=== PATIENT | male | born 1970 | race Caucasian/White ===

== ENCOUNTER 2017-04-08 11:06 | Inpatient (IN) | payer OTHER ==
[2017-04-08 11:20] VITALS: BMI 27.3
--- NOTE | 2017-04-08 13:02 | C.PDOC ---
History Of Present Illness 46 yo male come in for evaluation of RLQ pain gradually developed since yesterday associated with nausea, watery stool #2, decrease in appetite. Pt admits, taking antibiotic for past 7 days- Amoxicillin after was seen by dentist and diagnosed with early tooth abscess. Otherwise, pt denies fever, chills, neck pain, CP, SOB, dyspnea, diaphoresis, vomiting, melena, hematoschezia, back pain, UTI sx. Ambulate to ED appears in pain. Time Seen by Provider: 04/08/17 11:44 Chief Complaint (Nursing): Abdominal Pain History Per: Patient Onset/Duration Of Symptoms: Gradual Current Symptoms Are (Timing): Still Present Past Medical History Reviewed: Historical Data, Nursing Documentation, Vital Signs Vital Signs: Last Vital Signs Temp 98.2 F 04/08/17 11:20 Pulse 71 04/08/17 11:20 Resp 18 04/08/17 11:20 BP 138/77 04/08/17 11:20 Pulse Ox 99 04/08/17 16:28 - Medical History PMH: No Chronic Diseases Surgical History: No Surg Hx Family History: States: No Known Family Hx - Social History Hx Tobacco Use: No Hx Alcohol Use: No Hx Substance Use: No - Immunization History Hx Tetanus Toxoid Vaccination: No Hx Influenza Vaccination: No Hx Pneumococcal Vaccination: No Review Of Systems Except As Marked, All Systems Reviewed And Found Negative. Constitutional: Negative for: Fever, Chills ENT: Negative for: Ear Discharge, Nose Discharge, Throat Pain, Throat Swelling Cardiovascular: Negative for: Chest Pain Respiratory: Negative for: Cough, Shortness of Breath, Wheezing Gastrointestinal: Positive for: Nausea, Abdominal Pain, Diarrhea. Negative for : Vomiting, Melena, Hematochezia, Hematemesis Genitourinary: Negative for: Incontinence Musculoskeletal: Negative for: Neck Pain, Back Pain Skin: Negative for: Rash Neurological: Negative for: Altered Mental Status Physical Exam - Physical Exam Appears: Well, Non-toxic, No Acute Distress Skin: Normal Color, Warm, Dry, No Rash Eye(s): bilateral: PERRL Nose: No Flaring, No Discharge Oral Mucosa: Moist, No Drooling Throat: No Erythema, No Drooling Neck: Trachea Midline, Supple Cardiovascular: Rhythm Regular Respiratory: No Decreased Breath Sounds, No Accessory Muscle Use, No Rales, No Rhonchi Gastrointestinal/Abdominal: Soft, Tenderness (RLQ, moderate), No Distention, No Guarding, No Rebound Back: No CVA Tenderness Extremity: Normal ROM, No Deformity, No Swelling Neurological/Psych: Oriented x3, Normal Speech ED Course And Treatment - Laboratory Results Result Diagrams: 04/08/17 13:46 04/08/17 13:46 O2 Sat by Pulse Oximetry: 99 Pulse Ox Interpretation: Normal - CT Scan/US CT ABD/PLEVIS W/IV CONTRAST Other Rad Studies (CT/US): Read By Radiologist CT/US Interpretation: ADDENDUM: Upon closer review, there is mild inflammatory stranding at the level the right colon with adjacent diverticula and tiny foci at adjacent air. Constellation of findings appear consistent with acute diverticulitis and microperforation. Findings discussed with Jeanine Rogers on 04/08/17 at 5:32 p.m.. [ Addendum Report Added by Erica Bai MD at 04/08/2017 17:33:37 ] Progress Note: resident services coordinator called for consult at 16:01, pt was evaluated by surgery, hemoocult sent to lab. Blood work and imaging review, suspicion for Right side diverticulitis with small perforation. Case discussed between and surgical tech and admission to medicine recommend since no official radiology CT findings for Right side diverticulitis. At 17:37, radiologist called back and attendum placed with notes of. ADDENDUM: Upon closer review, there is mild inflammatory stranding at the level the right colon with adjacent diverticula and tiny foci at adjacent air. Constellation of findings appear consistent with acute diverticulitis and microperforation. Findings discussed with Jeanine Rogers on 04/08/17 at 5:32 p.m.. [ Addendum Report Added by Erica Bai MD at 04/08/2017 17:33:37 ]. was called back and accepted admission. Abx ordered. Results review and sicussed with pt. AGrees with plan. Disposition - Disposition Disposition: HOSPITALIZED Disposition Time: 16:01 Condition: STABLE Forms: [facility] (Lithuanian) - Clinical Impression Clinical Impression: Diverticulitis of colon with perforation
[2017-04-08] MEDS ORDERED: Sodium Chloride 0.9% 1,000 ML IV ONE (13:27)
[2017-04-08] MEDS ORDERED: Sodium Chloride 0.9% 1,000 ML ONE (13:46)
[2017-04-08 13:50] LABS: BASO % 0.2 % (0.0-2.0); HEMATOCRIT 42.6 % (35.0-51.0); MEAN CELL VOLUME 85.2 fL (80.0-94.0); MEAN CORPUSCULAR HEMOGLOBIN 28.9 pg (27.0-31.0); MEAN CORPUSCULAR HGB CONC 33.9 g/dL (33.0-37.0); MEAN PLATELET VOLUME 10.2 fL (7.2-11.7); MONO # 1.2 K/uL (0.0-0.8); MONO % 5.7 % (0.0-10.0); RED CELL DISTRIBUTION WIDTH 13.7 % (11.5-14.5); WHITE BLOOD COUNT 21.5 K/uL (4.8-10.8)
[2017-04-08 13:58] LABS: INR 1.2
[2017-04-08 14:03] LABS: ALKALINE PHOSPHATASE 99 U/L (38-126); ALT/SGPT 64 U/L (21-72); AST/SGOT 32 U/L (17-59); BILIRUBIN,TOTAL 0.8 mg/dL (0.2-1.3); BLOOD UREA NITROGEN 15 mg/dL (9-20); CALCIUM 8.7 mg/dl (8.6-10.4); CARBON DIOXIDE 30 mmol/L (22-30); CHLORIDE 102 mmol/L (98-107); GFR AFRICAN-AMERICAN > 60; GLUCOSE,RANDOM 115 mg/dL (75-110); POTASSIUM 4.3 mmol/L (3.6-5.2); SODIUM 141 mmol/L (132-148); TOTAL PROTEIN 8.3 g/dL (6.3-8.3)
[2017-04-08 14:04] LABS: ALB/GLOB RATIO 0.9 (1.0-2.1)
[2017-04-08 14:06] LABS: RBC URINE 2 /hpf (0-3); URINE BILIRUBIN NEGATIVE (NEGATIVE); URINE BLOOD 1+ (NEGATIVE); URINE COLOR Yellow (YELLOW); URINE GLUCOSE (UA) NORMAL (Normal); URINE KETONE NEGATIVE (NEGATIVE); URINE LEUKOCYTE ESTERASE NEG Leu/uL (Negative); URINE PROTEIN NEGATIVE (NEGATIVE); URINE UROBILINOGEN NORMAL mg/dL (0.2-1.0); WBC URINE 3 /hpf (0-5)
[2017-04-08] MEDS ORDERED: Iodixanol 320 MG/ML 100 ML BOTTLE IV ONE (14:47)
--- NOTE | 2017-04-08 15:49 | CT ---
PROCEDURE: CT Abdomen and Pelvis with contrast HISTORY: RLQ pain COMPARISON: None available. TECHNIQUE: Contrast dose: 100 cc Visipaque 320 Radiation dose: Total exam DLP = 528.36 MGy-cm. This CT exam was performed using one or more of the following dose reduction techniques: Automated exposure control, adjustment of the mA and/or kV according to patient size, and/or use of iterative reconstruction technique. FINDINGS: LOWER THORAX: Bibasilar atelectasis/ infiltrates. No visible pleural effusion or pneumothorax. LIVER: 6 mm right hepatic lobe hypodensity, too small to characterize. GALLBLADDER AND BILE DUCTS: Unremarkable. PANCREAS: Unremarkable. SPLEEN: 14 mm probable splenule left upper quadrant. Otherwise unremarkable. ADRENALS: Unremarkable. KIDNEYS AND URETERS: The kidneys enhance symmetrically. No hydronephrosis or obstructing calculus identified. VASCULATURE: No aortic aneurysm. BOWEL: Stomach is nondistended. Lack of oral contrast limits evaluation for bowel pathology. Bowel loops appear within normal limits of caliber without evidence of obstruction. APPENDIX: The appendix appears within normal limits of caliber. No secondary signs of acute appendicitis. PERITONEUM: No significant free fluid. No definite free air. LYMPH NODES: No bulky adenopathy. BLADDER: Unremarkable. REPRODUCTIVE: The prostate gland measures approximately 4.0 x 4.8 cm. BONES: No acute osseous abnormality is detected. OTHER FINDINGS: 8 mm fat containing umbilical hernia. IMPRESSION: Enlarged prostate gland. Recommend correlation with PSA. Bibasilar atelectasis/infiltrates. Too small to characterize right hepatic lobe hypodensity; statistically likely cyst or hemangioma.
[2017-04-08] MEDS ORDERED: Ciprofloxacin 400mg/200ml D5W 400 MG/200 ML BAG IVPB STA (17:42)
[2017-04-08] MEDS ORDERED: Piperacill/Tazo 4.5gm in Dex 4.5 GM/100 ML BAG IVPB STA (17:43)
[2017-04-08] MEDS ORDERED: metroNIDAZOLE IV 500 mg/100 ml 500 MG/100 ML BAG IV ONE (17:45)
[2017-04-08] MEDS ORDERED: Morphine 4 MG/ML VIAL IVP PRN (17:54)
--- NOTE | 2017-04-08 18:10 | CP.PCM.HP ---
<Bryant Sellers - Last Filed: 04/08/17 18:19> History of Present Illness - History of Present Illness History of Present Illness: Surgery H&P. Dr. Salazar 46yo M with no significant PMHx here for evaluation of RLQ abdominal pain. Patient states that he has had right sided abdominal pain for the past 5-6 months, had an out-patient abdominal ultrasound and was told that he has a muscle strain, which improved with some rest. Recently, he was prescribed Amoxicillin after he had "oral gum surgery for a dental abscess," he has 2 pills of the Amoxicillin left. He states that he has been having diarrhea for the past 3 days, denies any blood. Mild nausea which started this morning, no vomiting. Does report a fever of 100F last night, with some chills. Denies any constipation. no CP/SOB. Denies any urinary complaints. PMHx: Denies PSHx: Denies Family Hx: Denies Social Hx: Denies Tobacco. Occasional ETOH use. Denies illcit drugs. Lives at home with and daughter NKDA Present on Admission - Present on Admission Any Indicators Present on Admission: No Review of Systems - Review of Systems All systems: reviewed and no additional remarkable complaints except - Constitutional Constitutional: Chills, Fever - Cardiovascular Cardiovascular: absent: Chest Pain, Dyspnea - Respiratory Respiratory: absent: Cough, Dyspnea - Gastrointestinal Gastrointestinal: Abdominal Pain, Diarrhea, Nausea. absent: Hematochezia, Vomiting - Genitourinary Genitourinary: absent: Difficulty Urinating, Dysuria, Flank Pain, Hematuria Past Patient History - Past Social History Smoking Status: Never Smoked Alcohol: Occasional Drugs: Denies Home Situation {Lives}: With Family - PSYCHIATRIC Hx Substance Use: No - ANESTHESIA Hx Anesthesia: No Meds Allergies/Adverse Reactions: Allergies Allergy/AdvReac Type Severity Reaction Status Date / Time No Known Allergies Allergy Verified 04/08/17 11:19 Physical Exam - Constitutional Appears: Well, Non-toxic, No Acute Distress - Head Exam Head Exam: ATRAUMATIC, NORMAL INSPECTION, NORMOCEPHALIC - Eye Exam Eye Exam: EOMI - ENT Exam ENT Exam: Mucous Membranes Moist - Respiratory Exam Respiratory Exam: NORMAL BREATHING PATTERN. absent: Accessory Muscle Use, Respiratory Distress - Cardiovascular Exam Cardiovascular Exam: RRR - GI/Abdominal Exam Additional comments: Soft, Non distended. RLQ tenderness to palpation. No McBurney's point tenderness. No Psoas sign. No Morgan's sign. No Rebound tenderness. No guarding. No apparent masses or hernias. - Rectal Exam Rectal Exam: NORMAL INSPECTION. absent: Bloody Stool, Hemorrhoids, Fecal Impaction Additional comments: No prostatic tenderness to palpatin noted. No stool in rectal vault. No gross blood or melena noted. No Hemorrhoids noted. Good rectal tone. - Extremities Exam Extremities exam: Positive for: normal inspection. Negative for: calf tenderness - Neurological Exam Neurological exam: Alert, Oriented x3 - Psychiatric Exam Psychiatric exam: Normal Affect, Normal Mood - Skin Skin Exam: Dry, Intact, Normal Color, Warm Results - Vital Signs Recent Vital Signs: Last Vital Signs Temp 98.2 F 04/08/17 11:20 Pulse 71 04/08/17 11:20 Resp 18 04/08/17 11:20 BP 138/77 04/08/17 11:20 Pulse Ox 99 04/08/17 17:53 - Labs Result Diagrams: 04/08/17 13:46 04/08/17 13:46 Labs: Laboratory Results - last 24 hr 04/08/17 04/08/17 04/08/17 13:46 13:46 13:46 WBC 21.5 H RBC 5.00 Hgb 14.4 Hct 42.6 MCV 85.2 MCH 28.9 MCHC 33.9 RDW 13.7 Plt Count 205 MPV 10.2 Neut % (Auto) 80.1 H Lymph % (Auto) 14.0 L [place] % (Auto) 5.7 Eos % (Auto) 0.0 Baso % (Auto) 0.2 Neut # 17.3 H Lymph # 3.0 [place] # 1.2 H Eos # 0.0 Baso # 0.0 PT 13.3 H INR 1.2 APTT 27 Sodium Potassium Chloride Carbon Dioxide Anion Gap BUN Creatinine Est GFR ( Amer) Est GFR (Non-Af Amer) Random Glucose Calcium Total Bilirubin AST ALT Alkaline Phosphatase Total Protein Albumin Globulin Albumin/Globulin Ratio Lipase Urine Color Yellow Urine Clarity Clear Urine pH 5.0 Ur Specific [place] 1.012 Urine Protein Negative Urine Glucose (UA) Normal Urine Ketones Negative Urine Blood 1+ H Urine Nitrate Negative Urine Bilirubin Negative Urine Urobilinogen Normal Ur Leukocyte Esterase Neg Urine WBC (Auto) 3 Urine RBC (Auto) 2 04/08/17 13:46 WBC RBC Hgb Hct MCV MCH MCHC RDW Plt Count MPV Neut % (Auto) Lymph % (Auto) [place] % (Auto) Eos % (Auto) Baso % (Auto) Neut # Lymph # [place] # Eos # Baso # PT INR APTT Sodium 141 Potassium 4.3 Chloride 102 Carbon Dioxide 30 Anion Gap 13 BUN 15 Creatinine 0.9 Est GFR ( Amer) > 60 Est GFR (Non-Af Amer) > 60 Random Glucose 115 H Calcium 8.7 Total Bilirubin 0.8 AST 32 ALT 64 Alkaline Phosphatase 99 Total Protein 8.3 Albumin 4.0 Globulin 4.4 H Albumin/Globulin Ratio 0.9 L Lipase 55 Urine Color Urine Clarity Urine pH Ur Specific [place] Urine Protein Urine Glucose (UA) Urine Ketones Urine Blood Urine Nitrate Urine Bilirubin Urine Urobilinogen Ur Leukocyte Esterase Urine WBC (Auto) Urine RBC (Auto) Assessment & Plan - Assessment and Plan (Free Text) Assessment: 46yo M with right-sided diverticulitis w/ microperf - Leukocytosis, afebrile - VSS - IV Abx as per ID - IV Fluids - F/u GI recs - Pain management - Zofran prn - Encourage IS - NPO except sips and chips for now - serial abd exams Further recs as per Dr. Marei Sellers PGY1 surgery pager: [phone] <Adarsh Salazar - Last Filed: 04/11/17 17:43> Results - Vital Signs Recent Vital Signs: Last Vital Signs Temp 98.7 F 04/11/17 16:00 Pulse 55 L 04/11/17 16:00 Resp 20 04/11/17 16:00 BP 96/60 L 04/11/17 16:00 Pulse Ox 96 04/11/17 16:00 - Labs Result Diagrams: 04/11/17 08:08 04/11/17 08:08 Labs: Laboratory Results - last 24 hr 04/11/17 04/11/17 08:08 08:08 WBC 7.7 RBC 4.90 Hgb 14.2 Hct 42.0 MCV 85.7 MCH 28.9 MCHC 33.7 RDW 13.7 Plt Count 230 MPV 10.3 Sodium 139 Potassium 3.7 Chloride 102 Carbon Dioxide 29 Anion Gap 11 BUN 5 L Creatinine 1.0 Est GFR ( Amer) > 60 Est GFR (Non-Af Amer) > 60 Random Glucose 101 Calcium 8.1 L Total Bilirubin 0.9 AST 19 ALT 49 Alkaline Phosphatase 75 Total Protein 6.8 Albumin 3.7 Globulin 3.1 Albumin/Globulin Ratio 1.2 Attending/Attestation - Attestation I have personally seen and examined this patient.: Yes I have fully participated in the care of the patient.: Yes I have reviewed all pertinent clinical information: Yes Notes (Text): Pt was seen and examined at bedside Agree with above note and assessment Pt with Diverticulitis and severe leucocytosis RLQ tenderness Labs and radiology reviewed Ass: Colon diverticulitis with microperforation IV antibiotics NPO, IVF IV Morphine GI consult Plan d.w pt in detail Risk and benefit explained in detail.
[2017-04-08] MEDS: Dextrose 5%/0.45% NS 1,000 ML IV SCH (19:16)
[2017-04-08] MEDS: metroNIDAZOLE IV 500 mg/100 ml 500 MG/100 ML BAG IVPB SCH (20:42)
[2017-04-08] MEDS ORDERED: Pneumococcal 23-Valent Vaccine IM ONE (20:49)
[2017-04-08] MEDS ORDERED: Influenza Vaccine 60 mcg/0.5 mL SYR (4YR UP) IM ONE (20:50)
[2017-04-08] MEDS ORDERED: Piperacill/Tazo 4.5gm in Dex 4.5 GM/100 ML BAG IVPB SCH (22:00)
[2017-04-08] MEDS ORDERED: metroNIDAZOLE IV 500 mg/100 ml 500 MG/100 ML BAG IVPB SCH (22:00)
[2017-04-09] MEDS: Dextrose 5%/0.45% NS 1,000 ML IV SCH ×4 (02:00→18:09)
[2017-04-09] MEDS: Piperacill/Tazo 4.5gm in Dex 4.5 GM/100 ML BAG IVPB SCH ×3 (02:20→18:12)
[2017-04-09] MEDS ORDERED: metroNIDAZOLE IV 500 mg/100 ml 500 MG/100 ML BAG IVPB SCH (03:30)
[2017-04-09] MEDS: metroNIDAZOLE IV 500 mg/100 ml 500 MG/100 ML BAG IVPB SCH ×3 (04:15→20:57)
--- NOTE | 2017-04-09 07:55 | CP.PCM.CON ---
<Saw Browning - Last Filed: 04/09/17 08:40> History of Present Illness - History of Present Illness History of Present Illness: Saw Browning D.O. PGY-2, GI Consultation Note 46 year old male with no PMH who presents for complaints of severe RLQ pain and 3 episodes of diarrhea for the last 2 days. Patient states that he has been having issues with RLQ pain for about 5-6 months, was evaluate and had an US and told that he had a "split in the muscle." Patient continues to attribute his pains to this muscular issue as it would get worse with physical activity every time he played soccer. However, 8 days ago he went to the dentist for a tooth infection and was treated with Amoxicillin. He did not play soccer given this fact and then started to experience pain, -01/06, nonradiating, RLQ, constant, dull and different from before. Patient knew something was wrong as he had not done much physical activity to attribute the pain to. Patient then Saturday night 04/07 had one episode of [place] 6 diarrhea overnight and then [place] 7 in the morning of 04/08 and so decided to come in. Denies every having before. Denies sick contacts or recent travel. Denies any alarm symptoms including any recent weight loss, intentional or unintentional, fevers, chills, or night sweats. PMH: denies PSH: denies SH: denies tobacco use, states social alcohol, denies illicits, lives at home with and daughter, works a desk job/picking up boxes FH: 2 sisters have some sort of colitis, mom recently having GI issues Meds: tylenol PRN for pain Allergies: NKA Review of Systems - Review of Systems All systems: reviewed and no additional remarkable complaints except - Gastrointestinal Gastrointestinal: Abdominal Pain Past Patient History - Past Medical History & Family History Past Medical History?: No - Past Social History Smoking Status: Never Smoked - MUSCULOSKELETAL/RHEUMATOLOGICAL Hx Falls: No - PSYCHIATRIC Hx Substance Use: No - ANESTHESIA Hx Anesthesia: No Meds Allergies/Adverse Reactions: Allergies Allergy/AdvReac Type Severity Reaction Status Date / Time No Known Allergies Allergy Verified 04/08/17 11:19 - Medications Medications: Current Medications Dextrose/Sodium Chloride (Dextrose 5%/0.45% Ns 1000 Ml) 1,000 mls @ 125 mls/hr IV .Q8H ERI Last Admin: 04/09/17 02:00 Dose: 125 mls/hr Piperacillin Sod/Tazobactam Sod (Zosyn 4.5 Gm Iv Premix) 4.5 gm in 100 mls @ 200 mls/hr IVPB Q8H [facility] Last Admin: 04/09/17 02:20 Dose: 200 mls/hr Metronidazole (Flagyl) 500 mg in 100 mls @ 100 mls/hr IVPB Q8H [facility] Last Admin: 04/09/17 04:15 Dose: 100 mls/hr Morphine Sulfate (Morphine) 4 mg IVP Q4H PRN PRN Reason: Pain, moderate (4-7) Ondansetron HCl (Zofran Inj) 4 mg IVP Q4 PRN PRN Reason: Nausea/Vomiting Physical Exam - Constitutional Appears: Non-toxic, No Acute Distress - Head Exam Head Exam: ATRAUMATIC, NORMOCEPHALIC - Eye Exam Eye Exam: EOMI, PERRL. absent: Scleral icterus - ENT Exam ENT Exam: Mucous Membranes Moist, Normal Oropharynx - Neck Exam Neck exam: Positive for: Normal Inspection. Negative for: Tenderness - Respiratory Exam Respiratory Exam: Clear to Auscultation Bilateral. absent: Rhonchi, Wheezes - Cardiovascular Exam Cardiovascular Exam: RRR, +S1, +S2 - GI/Abdominal Exam GI & Abdominal Exam: Normal Bowel Sounds, Soft, Tenderness (mild RLQ). absent: Distended, Firm, Guarding - Extremities Exam Extremities exam: Negative for: calf tenderness, tenderness - Neurological Exam Neurological exam: Alert, Oriented x3 - Psychiatric Exam Psychiatric exam: Normal Affect, Normal Mood - Skin Skin Exam: Dry, Warm Results - Vital Signs Recent Vital Signs: Last Vital Signs Temp 98.4 F 04/09/17 00:00 Pulse 60 04/09/17 00:00 Resp 20 04/09/17 00:00 BP 106/62 04/09/17 00:00 Pulse Ox 95 04/09/17 00:00 - Labs Result Diagrams: 04/08/17 13:46 04/08/17 13:46 Labs: Laboratory Results - last 24 hr 04/08/17 04/08/17 04/08/17 13:46 13:46 13:46 WBC 21.5 H RBC 5.00 Hgb 14.4 Hct 42.6 MCV 85.2 MCH 28.9 MCHC 33.9 RDW 13.7 Plt Count 205 MPV 10.2 Neut % (Auto) 80.1 H Lymph % (Auto) 14.[address] [place] % (Auto) 5.7 Eos % (Auto) 0.0 Baso % (Auto) 0.2 Neut # 17.3 H Lymph # 3.0 [place] # 1.2 H Eos # 0.0 Baso # 0.0 PT 13.3 H INR 1.2 APTT 27 Sodium Potassium Chloride Carbon Dioxide Anion Gap BUN Creatinine Est GFR ( Amer) Est GFR (Non-Af Amer) Random Glucose Calcium Total Bilirubin AST ALT Alkaline Phosphatase Total Protein Albumin Globulin Albumin/Globulin Ratio Lipase Urine Color Yellow Urine Clarity Clear Urine pH 5.0 Ur Specific [place] 1.012 Urine Protein Negative Urine Glucose (UA) Normal Urine Ketones Negative Urine Blood 1+ H Urine Nitrate Negative Urine Bilirubin Negative Urine Urobilinogen Normal Ur Leukocyte Esterase Neg Urine WBC (Auto) 3 Urine RBC (Auto) 2 Stool Occult Blood 04/08/17 04/08/17 13:46 18:15 WBC RBC Hgb Hct MCV MCH MCHC RDW Plt Count MPV Neut % (Auto) Lymph % (Auto) [place] % (Auto) Eos % (Auto) Baso % (Auto) Neut # Lymph # [place] # Eos # Baso # PT INR APTT Sodium 141 Potassium 4.3 Chloride 102 Carbon Dioxide 30 Anion Gap 13 BUN 15 Creatinine 0.9 Est GFR ( Amer) > 60 Est GFR (Non-Af Amer) > 60 Random Glucose 115 H Calcium 8.7 Total Bilirubin 0.8 AST 32 ALT 64 Alkaline Phosphatase 99 Total Protein 8.3 Albumin 4.0 Globulin 4.4 H Albumin/Globulin Ratio 0.9 L Lipase 55 Urine Color Urine Clarity Urine pH Ur Specific [place] Urine Protein Urine Glucose (UA) Urine Ketones Urine Blood Urine Nitrate Urine Bilirubin Urine Urobilinogen Ur Leukocyte Esterase Urine WBC (Auto) Urine RBC (Auto) Stool Occult Blood Negative Assessment & Plan - Assessment and Plan (Free Text) Assessment: 46 year old male with no PMH who presents for complaints of severe RLQ pain and 3 episodes of diarrhea for 2 days Plan: Right sided diverticulosis with miroperforation Continue supportive care and IVF hydration Advance to liquid diet, can advance as tolerated Anti emetics PRN Pain control Continue abx Will need a colonoscopy in 6-8 once out acute episode for evaluation for causes of right sided diverticulosis Discussed with fellow and attending physician Thank you for the pleasure of participating in the care of this interesting patient - Date & Time Date: 04/09/17 Time: 06:45 <Minor Vance - Last Filed: 04/09/17 09:28> Meds - Medications Medications: Current Medications Dextrose/Sodium Chloride (Dextrose 5%/0.45% Ns 1000 Ml) 1,000 mls @ 125 mls/hr IV .Q8H [facility] Last Admin: 04/09/17 02:00 Dose: 125 mls/hr Piperacillin Sod/Tazobactam Sod (Zosyn 4.5 Gm Iv Premix) 4.5 gm in 100 mls @ 200 mls/hr IVPB Q8H [facility] Last Admin: 04/09/17 02:20 Dose: 200 mls/hr Metronidazole (Flagyl) 500 mg in 100 mls @ 100 mls/hr IVPB Q8H [facility] Last Admin: 04/09/17 04:15 Dose: 100 mls/hr Morphine Sulfate (Morphine) 4 mg IVP Q4H PRN PRN Reason: Pain, moderate (4-7) Ondansetron HCl (Zofran Inj) 4 mg IVP Q4 PRN PRN Reason: Nausea/Vomiting Results - Vital Signs Recent Vital Signs: Last Vital Signs Temp 98.3 F 04/09/17 08:08 Pulse 61 04/09/17 08:08 Resp 20 04/09/17 08:08 BP 111/69 04/09/17 08:08 Pulse Ox 96 04/09/17 08:08 - Labs Result Diagrams: 04/08/17 13:46 04/08/17 13:46 Labs: Laboratory Results - last 24 hr 04/08/17 04/08/17 04/08/17 13:46 13:46 13:46 WBC 21.5 H RBC 5.00 Hgb 14.4 Hct 42.6 MCV 85.2 MCH 28.9 MCHC 33.9 RDW 13.7 Plt Count 205 MPV 10.2 Neut % (Auto) 80.1 H Lymph % (Auto) 14.[address] [place] % (Auto) 5.7 Eos % (Auto) 0.0 Baso % (Auto) 0.2 Neut # 17.3 H Lymph # 3.0 [place] # 1.2 H Eos # 0.0 Baso # 0.0 PT 13.3 H INR 1.2 APTT 27 Sodium Potassium Chloride Carbon Dioxide Anion Gap BUN Creatinine Est GFR ( Amer) Est GFR (Non-Af Amer) Random Glucose Calcium Total Bilirubin AST ALT Alkaline Phosphatase Total Protein Albumin Globulin Albumin/Globulin Ratio Lipase Urine Color Yellow Urine Clarity Clear Urine pH 5.0 Ur Specific [place] 1.012 Urine Protein Negative Urine Glucose (UA) Normal Urine Ketones Negative Urine Blood 1+ H Urine Nitrate Negative Urine Bilirubin Negative Urine Urobilinogen Normal Ur Leukocyte Esterase Neg Urine WBC (Auto) 3 Urine RBC (Auto) 2 Stool Occult Blood 04/08/17 04/08/17 13:46 18:15 WBC RBC Hgb Hct MCV MCH MCHC RDW Plt Count MPV Neut % (Auto) Lymph % (Auto) [place] % (Auto) Eos % (Auto) Baso % (Auto) Neut # Lymph # [place] # Eos # Baso # PT INR APTT Sodium 141 Potassium 4.3 Chloride 102 Carbon Dioxide 30 Anion Gap 13 BUN 15 Creatinine 0.9 Est GFR ( Amer) > 60 Est GFR (Non-Af Amer) > 60 Random Glucose 115 H Calcium 8.7 Total Bilirubin 0.8 AST 32 ALT 64 Alkaline Phosphatase 99 Total Protein 8.3 Albumin 4.0 Globulin 4.4 H Albumin/Globulin Ratio 0.9 L Lipase 55 Urine Color Urine Clarity Urine pH Ur Specific [place] Urine Protein Urine Glucose (UA) Urine Ketones Urine Blood Urine Nitrate Urine Bilirubin Urine Urobilinogen Ur Leukocyte Esterase Urine WBC (Auto) Urine RBC (Auto) Stool Occult Blood Negative Attending/Attestation - Attestation I have personally seen and examined this patient.: Yes I have fully participated in the care of the patient.: Yes I have reviewed all pertinent clinical information: Yes Notes (Text): 04/09/17 09:21 I have seen and examined patient with GI fellow and medical records technician. Agree with above documentation with the following additions. In brief, this is a 46 year old male without significant past medical history who presents to hospital with complaint of sharp right sided abdominal pain which started 3 days ago. Prior to this he was in usual state of health. He describes a sharp, 8/10 intensity RLQ pain that was non-radiating and worse with movement. He admits to intermittent similar issues over the past 6 months which he believed were muscular in origin. When pain started, he also experienced three episodes of watery diarrhea. He otherwise denies nausea, vomiting, fever/chills, weight loss, or rectal bleeding. No prior endoscopic evaluation. Additional physical examination: Abdomen: no palpable hepato/splenomegaly Abdominal pain CT imaging reviewed by me showing right sided cecal inflammation with microperforation consistent with acute diverticulitis - Liquid diet as tolerated - Continue with antibiotic therapy - Follow up blood cultures - Follow up surgical recommendations - Patient would require outpatient elective colonoscopy 6-8 weeks following resolution of acute diverticulitis episode. Will continue to monitor patient clinical course.
--- NOTE | 2017-04-09 10:11 | CP.PCM.PN ---
<Bryant Sellers - Last Filed: 04/09/17 10:06> Subjective - Date & Time of Evaluation Date of Evaluation: 04/09/17 Time of Evaluation: 07:00 - Subjective Subjective: Surgery Progress note. Dr. Salazar Pt seen and examined at bedside. No acute events overnight. Denies F/C. Abd pain mildly improved. Denies N/V/D. Does report that he is hungry. Objective - Vital Signs/Intake and Output Vital Signs (last 24 hours): Temp Pulse Resp BP Pulse Ox 98.3 F 61 20 111/69 96 04/09/17 08:08 04/09/17 08:08 04/09/17 08:08 04/09/17 08:08 04/09/17 08:08 Intake and Output: 04/09/17 04/09/17 06:59 18:59 Intake Total 1415 Balance 1415 - Medications Medications: Current Medications Dextrose/Sodium Chloride (Dextrose 5%/0.45% Ns 1000 Ml) 1,000 mls @ 125 mls/hr IV .Q8H [facility] Last Admin: 04/09/17 02:00 Dose: 125 mls/hr Piperacillin Sod/Tazobactam Sod (Zosyn 4.5 Gm Iv Premix) 4.5 gm in 100 mls @ 200 mls/hr IVPB Q8H [facility] Last Admin: 04/09/17 02:20 Dose: 200 mls/hr Metronidazole (Flagyl) 500 mg in 100 mls @ 100 mls/hr IVPB Q8H [facility] Last Admin: 04/09/17 04:15 Dose: 100 mls/hr Morphine Sulfate (Morphine) 4 mg IVP Q4H PRN PRN Reason: Pain, moderate (4-7) Ondansetron HCl (Zofran Inj) 4 mg IVP Q4 PRN PRN Reason: Nausea/Vomiting - Labs Labs: 04/08/17 13:46 04/08/17 13:46 PT 13.3 SECONDS (9.7-12.2) H 04/08/17 13:46 INR 1.2 04/08/17 13:46 APTT 27 SECONDS (21-34) 04/08/17 13:46 - Constitutional Appears: Well, Non-toxic, No Acute Distress - Head Exam Head Exam: ATRAUMATIC, NORMAL INSPECTION, NORMOCEPHALIC - Eye Exam Eye Exam: EOMI - ENT Exam ENT Exam: Mucous Membranes Moist - Respiratory Exam Respiratory Exam: NORMAL BREATHING PATTERN. absent: Accessory Muscle Use, Respiratory Distress - GI/Abdominal Exam GI & Abdominal Exam: Soft. absent: Distended, Firm, Guarding, Rigid Additional comments: Tenderness to palpation RLQ. No rebound, no guarding - Extremities Exam Extremities Exam: Normal Inspection. absent: Calf Tenderness - Neurological Exam Neurological Exam: Alert, Awake, Normal Gait, Oriented x3 - Psychiatric Exam Psychiatric exam: Normal Affect, Normal Mood - Skin Skin Exam: Dry, Intact, Normal Color, Warm Assessment and Plan - Assessment and Plan (Free Text) Assessment: 46yo M with right-sided diverticulitis w/ microperf - VSS - will f/u labs today, prior to advancing diet as tolerated - IV Abx as per ID - IV Fluids - GI recs: will need elective colonoscopy in 6-8 weeks. - Pain management - Zofran prn Further recs as per Dr. Marie Sellers PGY1 surgery pager: [phone] <Adarsh Salazar B - Last Filed: 04/11/17 17:48> Objective - Vital Signs/Intake and Output Vital Signs (last 24 hours): Temp Pulse Resp BP Pulse Ox 98.7 F 55 L 20 96/60 L 96 04/11/17 16:00 04/11/17 16:00 04/11/17 16:00 04/11/17 16:00 04/11/17 16:00 Intake and Output: 04/11/17 04/11/17 06:59 18:59 Intake Total 500 Output Total 400 Balance 100 - Medications Medications: Current Medications Piperacillin Sod/Tazobactam Sod (Zosyn 4.5 Gm Iv Premix) 4.5 gm in 100 mls @ 200 mls/hr IVPB Q8H [facility] Last Admin: 04/11/17 12:00 Dose: 200 mls/hr Metronidazole (Flagyl) 500 mg in 100 mls @ 100 mls/hr IVPB Q8H [facility] Last Admin: 04/11/17 12:06 Dose: 100 mls/hr Ondansetron HCl (Zofran Inj) 4 mg IVP Q4 PRN PRN Reason: Nausea/Vomiting - Labs Labs: 04/11/17 08:08 04/11/17 08:08 PT 13.3 SECONDS (9.7-12.2) H 04/08/17 13:46 INR 1.2 04/08/17 13:46 APTT 27 SECONDS (21-34) 04/08/17 13:46 Attending/Attestation - Attestation I have personally seen and examined this patient.: Yes I have fully participated in the care of the patient.: Yes I have reviewed all pertinent clinical information, including history, physical exam and plan: Yes Notes (Text): Pt was seen and examined at bedside Agree with above note and assessment Pt is improving clinically GI consult appreciated c.w IV antibiotics Repeat CBC in am Plan d.w pt in detail
[2017-04-09 11:35] LABS: BASO % 0.2 % (0.0-2.0); EOS # 0.1 K/uL (0.0-0.7); EOS % 0.8 % (0.0-4.0); HEMATOCRIT 41.1 % (35.0-51.0); LYMPH % 14.3 % (20.0-40.0); MEAN CELL VOLUME 85.3 fL (80.0-94.0); MEAN CORPUSCULAR HEMOGLOBIN 28.1 pg (27.0-31.0); MEAN PLATELET VOLUME 10.3 fL (7.2-11.7); MONO # 1.1 K/uL (0.0-0.8); MONO % 7.4 % (0.0-10.0); RED CELL DISTRIBUTION WIDTH 13.6 % (11.5-14.5); WHITE BLOOD COUNT 14.1 K/uL (4.8-10.8)
--- NOTE | 2017-04-09 11:50 | CP.PCM.CON ---
History of Present Illness - History of Present Illness History of Present Illness: 46 year old male with no PMH who presents for complaints of severe RLQ pain and 3 episodes of diarrhea for the last 2 days. Patient states that he has been having issues with RLQ pain for about 5-6 months, was evaluate and had an US and told that he had a "split in the muscle." PMH: denies PSH: denies SH: denies tobacco use, states social alcohol, denies illicits, lives at home with and daughter, works a desk job/picking up boxes FH: 2 sisters have some sort of colitis, mom recently having GI issues Meds: tylenol PRN for pain Allergies: NKA Review of Systems - Constitutional Constitutional: As Per HPI, Anorexia, Chills, Fever, Malaise, Weight Loss - EENT Eyes: absent: As Per HPI, Blind Spots, Blurred Vision, Change in Vision, Decreased Night Vision, Diplopia, Discharge, Dry Eye, Exophthalmos, Floaters, Irritation, Itchy Eyes, Loss of Peripheral Vision, Pain, Photophobia, Requires Corrective Lenses, Sees Flashes, Spots in Vision, Tunnel Vision, Other Visual Disturbances, Loss of Vision, Other Ears: absent: As Per HPI, Decreased Hearing, Ear Discharge, Ear Pain, Tinnitus, Abnormal Hearing, Disequilibrium, Dizziness, Other Nose/Mouth/Throat: absent: As Per HPI, Epistaxis, Nasal Congestion, Nasal Discharge, Nasal Obstruction, Nasal Trauma, Nose Pain, Post Nasal Drip, Sinus Pain, Sinus Pressure, Bleeding Gums, Change in Voice, Dental Pain, Dry Mouth, Dysphagia, Halitosis, Hoarsness, Lip Swelling, Mouth Lesions, Mouth Pain, Odynophagia, Sore Throat, Throat Swelling, Tongue Swelling, Facial Pain, Neck Pain, Neck Mass, Other - Cardiovascular Cardiovascular: absent: As Per HPI, Acrocyanosis, Chest Pain, Chest Pain at Rest , Chest Pain with Activity, Claudication, Diaphoresis, Dyspnea, Dyspnea on Exertion, Edema, Irregular Heart Rhythm, Pain Radiating to Arm/Neck/Jaw, Leg Edema, Leg Ulcers, Lightheadedness, Orthopnea, Palpitations, Paroxysmal Nocturnal Dyspnea, Pedal Edema, Radiating Pain, Rapid Heart Rate, Slow Heart Rate, Syncope, Other - Respiratory Respiratory: absent: As Per HPI, Cough, Dyspnea, Hemoptysis, Dyspnea on Exertion , Wheezing, Snoring, Stridor, Pain on Inspiration, Chest Congestion, Excessive Mucous Production, Change in Mucous Color, Pain with Coughing, Other - Gastrointestinal Gastrointestinal: As Per HPI, Abdominal Pain - Genitourinary Genitourinary: absent: As Per HPI, Change in Urinary Stream, Difficulty Urinating, Dysuria, Flank Pain, Hematuria, Pyuria, Nocturia, Urinary Incontinence, Urinary Frequency, Urinary Hesitance, Urinary Urgency, Voiding Freq/Small Amts, Freq UTI, Hx Renal/Bladder Calculi, Hx /Renal Surgery, Bladder Distension, Other - Musculoskeletal Musculoskeletal: absent: As Per HPI, Abnormal Gait, Arthralgias, Atrophy, Back Pain, Deformity, Joint Swelling, Limited Range of Motion, Loss of Height, Muscle Cramps, Muscle Weakness, Myalgias, Neck Pain, Numbness, Radiating Pain into Limb, Stiffness, Tingling, Other - Integumentary Integumentary: absent: As Per HPI, Acne, Alopecia, Bleeding Lesions, Change in Hair, Change in Nails, Change in Pigmentation, Changing Lesions, Dry Skin, Erythema, Furuncle, Hirsutism, Lesions, New Lesions, Non-Healing Lesions, Photosensitivity, Pruritus, Rash, Skin Pain, Skin Ulcer, Sores, Striae, Swelling , Unusual Bruising, Wounds, Jaundice, Other - Neurological Neurological: absent: As Per HPI, Abnormal Gait, Abnormal Hearing, Abnormal Movements, Abnormal Speech, Behavioral Changes, Burning Sensations, Confusion, Convulsions, Disequilibrium, Dizziness, Numbness, Focal Weakness, Frequent Falls , Headaches, Lack of Coordination, Loss of Vision, Memory Loss, Paresthesias, Radicular Pain, Restless Legs, Sensory Deficit, Syncope, Tingling, Tremor, Vertigo, Weakness, Other Visual Disturbances, Other - Psychiatric Psychiatric: absent: As Per HPI, Abnormal Sleep Pattern, Anhedonia, Anxiety, Auditory Hallucinations, Behavioral Changes, Change in Appetite, Change in Libido, Confusion, Depression, Difficulty Concentrating, Hallucinations, Homicidal Ideation, Hopelessness, Irritability, Memory Loss, Mood Swings, Panic Attacks, Paranoia, Suicidal Ideation, Visual Hallucinations, Tactile Hallucinations, Other - Endocrine Endocrine: absent: As Per HPI, Change in Body Appearance, Change in Libido, Cold Intolorance, Deepening of Voice, Excessive Sweating, Fatigue, Flushing, Heat Intolorance, Increase in Ring/Shoe/Hat Size, Palpitations, Polydipsia, Polyphagia, Polyuria, Other - Hematologic/Lymphatic Hematologic: absent: As Per HPI, Easy Bleeding, Easy Bruising, Lymphadenopathy, Other Past Patient History - Past Medical History & Family History Past Medical History?: No - Past Social History Smoking Status: Never Smoked - MUSCULOSKELETAL/RHEUMATOLOGICAL Hx Falls: No - PSYCHIATRIC Hx Substance Use: No - ANESTHESIA Hx Anesthesia: No Meds Allergies/Adverse Reactions: Allergies Allergy/AdvReac Type Severity Reaction Status Date / Time No Known Allergies Allergy Verified 04/08/17 11:19 - Medications Medications: Current Medications Dextrose/Sodium Chloride (Dextrose 5%/0.45% Ns 1000 Ml) 1,000 mls @ 125 mls/hr IV .Q8H [facility] Last Admin: 04/09/17 10:33 Dose: Not Given Piperacillin Sod/Tazobactam Sod (Zosyn 4.5 Gm Iv Premix) 4.5 gm in 100 mls @ 200 mls/hr IVPB Q8H [facility] Last Admin: 04/09/17 10:33 Dose: 200 mls/hr Metronidazole (Flagyl) 500 mg in 100 mls @ 100 mls/hr IVPB Q8H [facility] Last Admin: 04/09/17 04:15 Dose: 100 mls/hr Morphine Sulfate (Morphine) 4 mg IVP Q4H PRN PRN Reason: Pain, moderate (4-7) Last Admin: 04/09/17 10:35 Dose: 4 mg Ondansetron HCl (Zofran Inj) 4 mg IVP Q4 PRN PRN Reason: Nausea/Vomiting Physical Exam - Constitutional Appears: Non-toxic, No Acute Distress - Head Exam Head Exam: NORMOCEPHALIC - Eye Exam Eye Exam: absent: Scleral icterus - ENT Exam ENT Exam: Mucous Membranes Dry, Normal External Ear Exam - Neck Exam Neck exam: Negative for: Lymphadenopathy - Respiratory Exam Respiratory Exam: Decreased Breath Sounds - Cardiovascular Exam Cardiovascular Exam: REGULAR RHYTHM - GI/Abdominal Exam GI & Abdominal Exam: Diminished Bowel Sounds, Soft, Tenderness - Rectal Exam Rectal Exam: Deferred - Exam Exam: NORMAL INSPECTION - Extremities Exam Extremities exam: Positive for: pedal pulses present. Negative for: calf tenderness, pedal edema, tenderness - Back Exam Back exam: absent: CVA tenderness (L), CVA tenderness (R), paraspinal tenderness - Psychiatric Exam Psychiatric exam: Normal Affect, Normal Mood - Skin Skin Exam: Dry, Intact Results - Vital Signs Recent Vital Signs: Last Vital Signs Temp 98.3 F 04/09/17 08:08 Pulse 61 04/09/17 08:08 Resp 20 04/09/17 08:08 BP 111/69 04/09/17 08:08 Pulse Ox 96 04/09/17 08:08 - Labs Result Diagrams: 04/10/17 07:07 04/10/17 07:07 Labs: Laboratory Results - last 24 hr 04/08/17 04/08/17 04/08/17 13:46 13:46 13:46 WBC 21.5 H RBC 5.00 Hgb 14.4 Hct 42.6 MCV 85.2 MCH 28.9 MCHC 33.9 RDW 13.7 Plt Count 205 MPV 10.2 Neut % (Auto) 80.1 H Lymph % (Auto) 14.0 L [place] % (Auto) 5.7 Eos % (Auto) 0.0 Baso % (Auto) 0.2 Neut # 17.3 H Lymph # 3.0 Ocean # 1.2 H Eos # 0.0 Baso # 0.0 PT 13.3 H INR 1.2 APTT 27 Sodium Potassium Chloride Carbon Dioxide Anion Gap BUN Creatinine Est GFR ( Amer) Est GFR (Non-Af Amer) Random Glucose Calcium Total Bilirubin AST ALT Alkaline Phosphatase Total Protein Albumin Globulin Albumin/Globulin Ratio Lipase Urine Color Yellow Urine Clarity Clear Urine pH 5.0 Ur Specific [place] 1.012 Urine Protein Negative Urine Glucose (UA) Normal Urine Ketones Negative Urine Blood 1+ H Urine Nitrate Negative Urine Bilirubin Negative Urine Urobilinogen Normal Ur Leukocyte Esterase Neg Urine WBC (Auto) 3 Urine RBC (Auto) 2 Stool Occult Blood 04/08/17 04/08/17 04/09/17 13:46 18:15 11:31 WBC 14.1 H RBC 4.82 Hgb 13.6 Hct 41.1 MCV 85.3 MCH 28.1 MCHC 33.0 RDW 13.6 Plt Count 187 MPV 10.3 Neut % (Auto) 77.3 H Lymph % (Auto) 14.3 L [place] % (Auto) 7.4 Eos % (Auto) 0.8 Baso % (Auto) 0.2 Neut # 10.9 H Lymph # 2.0 Ocean # 1.1 H Eos # 0.1 Baso # 0.0 PT INR APTT Sodium 141 Potassium 4.3 Chloride 102 Carbon Dioxide 30 Anion Gap 13 BUN 15 Creatinine 0.9 Est GFR ( Amer) > 60 Est GFR (Non-Af Amer) > 60 Random Glucose 115 H Calcium 8.7 Total Bilirubin 0.8 AST 32 ALT 64 Alkaline Phosphatase 99 Total Protein 8.3 Albumin 4.0 Globulin 4.4 H Albumin/Globulin Ratio 0.9 L Lipase 55 Urine Color Urine Clarity Urine pH Ur Specific [place] Urine Protein Urine Glucose (UA) Urine Ketones Urine Blood Urine Nitrate Urine Bilirubin Urine Urobilinogen Ur Leukocyte Esterase Urine WBC (Auto) Urine RBC (Auto) Stool Occult Blood Negative Assessment & Plan (1) Diverticulitis of colon with perforation Status: Acute - Assessment and Plan (Free Text) Assessment: CONT IV RX FOR DIVERTICULITIS POSSIBLE PO CONVERSION WHEN SYMPTOMS IMPROVE
[2017-04-09 12:21] LABS: ALB/GLOB RATIO 0.8 (1.0-2.1); ALKALINE PHOSPHATASE 86 U/L (38-126); ALT/SGPT 48 U/L (21-72); AST/SGOT 18 U/L (17-59); BLOOD UREA NITROGEN 9 mg/dL (9-20); CARBON DIOXIDE 29 mmol/L (22-30); CHLORIDE 104 mmol/L (98-107); GFR AFRICAN-AMERICAN > 60; GLUCOSE,RANDOM 115 mg/dL (75-110); POTASSIUM 3.5 mmol/L (3.6-5.2); SODIUM 136 mmol/L (132-148); TOTAL PROTEIN 7.6 g/dL (6.3-8.3)
[2017-04-09] MEDS ORDERED: Simethicone 80 mg Chewtab PO STA (21:07)
[2017-04-10] MEDS: Dextrose 5%/0.45% NS 1,000 ML IV SCH ×3 (02:04→18:04)
[2017-04-10] MEDS: Piperacill/Tazo 4.5gm in Dex 4.5 GM/100 ML BAG IVPB SCH ×3 (02:24→18:04)
[2017-04-10] MEDS: metroNIDAZOLE IV 500 mg/100 ml 500 MG/100 ML BAG IVPB SCH ×3 (03:34→21:20)
--- NOTE | 2017-04-10 07:16 | CP.PCM.PN ---
<Saw Browning - Last Filed: 04/10/17 07:14> Subjective - Date & Time of Evaluation Date of Evaluation: 04/10/17 Time of Evaluation: 07:00 - Subjective Subjective: Saw Browning D.O. PGY-2, GI Consultation Note 46 year old male with no PMH who presents for complaints of severe RLQ pain and 3 episodes of diarrhea for 2 days. Patient was seen and examined at bedside. Patient was found resting comfortably and easily arousable. Patient states that he has been feeling much better and his pain has been well controlled. Patient denies any N/V or repeat episodes of diarrhea and also denies having any issues with the liquid diet since his admission. No overnight events. Objective - Vital Signs/Intake and Output Vital Signs (last 24 hours): Temp Pulse Resp BP Pulse Ox 98.5 F 60 20 110/67 96 04/10/17 00:00 04/10/17 00:00 04/10/17 00:00 04/10/17 00:00 04/10/17 00:00 Intake and Output: 04/10/17 04/10/17 06:59 18:59 Intake Total 1600 Output Total 600 Balance 1000 - Medications Medications: Current Medications Dextrose/Sodium Chloride (Dextrose 5%/0.45% Ns 1000 Ml) 1,000 mls @ 125 mls/hr IV .Q8H [facility] Last Admin: 04/10/17 02:04 Dose: Not Given Piperacillin Sod/Tazobactam Sod (Zosyn 4.5 Gm Iv Premix) 4.5 gm in 100 mls @ 200 mls/hr IVPB Q8H [facility] Last Admin: 04/10/17 02:24 Dose: 200 mls/hr Metronidazole (Flagyl) 500 mg in 100 mls @ 100 mls/hr IVPB Q8H [facility] Last Admin: 04/10/17 03:34 Dose: 100 mls/hr Morphine Sulfate (Morphine) 4 mg IVP Q4H PRN PRN Reason: Pain, moderate (4-7) Last Admin: 04/09/17 10:35 Dose: 4 mg Ondansetron HCl (Zofran Inj) 4 mg IVP Q4 PRN PRN Reason: Nausea/Vomiting - Labs Labs: 04/09/17 11:31 04/09/17 11:31 PT 13.3 SECONDS (9.7-12.2) H 04/08/17 13:46 INR 1.2 04/08/17 13:46 APTT 27 SECONDS (21-34) 04/08/17 13:46 - Constitutional Appears: Non-toxic, No Acute Distress - Head Exam Head Exam: ATRAUMATIC, NORMOCEPHALIC - Eye Exam Eye Exam: EOMI, PERRL. absent: Scleral icterus - ENT Exam ENT Exam: Mucous Membranes Moist, Normal Oropharynx - Neck Exam Neck exam: Positive for: Normal Inspection. Negative for: Tenderness - Respiratory Exam Respiratory Exam: Clear to Auscultation Bilateral. absent: Rhonchi, Wheezes - Cardiovascular Exam Cardiovascular Exam: RRR, +S1, +S2 - GI/Abdominal Exam GI & Abdominal Exam: Normal Bowel Sounds, Soft, absent: Distended, Firm, Guarding, Tenderness - Extremities Exam Extremities exam: Negative for: calf tenderness, tenderness - Neurological Exam Neurological exam: Alert, Oriented x3 - Psychiatric Exam Psychiatric exam: Normal Affect, Normal Mood - Skin Skin Exam: Dry, Warm Assessment and Plan - Assessment and Plan (Free Text) Assessment: 46 year old male with no PMH who presents for complaints of severe RLQ pain and 3 episodes of diarrhea for 2 days and was found to having R sided diverticulitis Plan: Right sided diverticulosis with miroperforation Leukocytosis downtrending, afebrile, VSS Continue supportive care Advance diet as tolerated Anti emetics PRN (has not required) Continue pain control (last used yesterday morning) Continue abx with metro/zosyn Will need a colonoscopy in 6-8 weeks as outpatient Will discuss with fellow and attending physician Thank you for the pleasure of participating in the care of this interesting patient <Donell Burgess - Last Filed: 04/10/17 13:26> Objective - Vital Signs/Intake and Output Vital Signs (last 24 hours): Temp Pulse Resp BP Pulse Ox 98.6 F 57 L 18 93/57 L 96 04/10/17 08:00 04/10/17 08:00 04/10/17 08:00 04/10/17 08:00 04/10/17 08:00 Intake and Output: 04/10/17 04/10/17 06:59 18:59 Intake Total 1600 Output Total 600 Balance 1000 - Medications Medications: Current Medications Dextrose/Sodium Chloride (Dextrose 5%/0.45% Ns 1000 Ml) 1,000 mls @ 125 mls/hr IV .Q8H [facility] Last Admin: 04/10/17 10:58 Dose: Not Given Piperacillin Sod/Tazobactam Sod (Zosyn 4.5 Gm Iv Premix) 4.5 gm in 100 mls @ 200 mls/hr IVPB Q8H [facility] Last Admin: 04/10/17 11:15 Dose: 200 mls/hr Metronidazole (Flagyl) 500 mg in 100 mls @ 100 mls/hr IVPB Q8H [facility] Last Admin: 04/10/17 12:50 Dose: 100 mls/hr Morphine Sulfate (Morphine) 4 mg IVP Q4H PRN PRN Reason: Pain, moderate (4-7) Last Admin: 04/09/17 10:35 Dose: 4 mg Ondansetron HCl (Zofran Inj) 4 mg IVP Q4 PRN PRN Reason: Nausea/Vomiting - Labs Labs: 04/10/17 07:07 04/10/17 07:07 PT 13.3 SECONDS (9.7-12.2) H 04/08/17 13:46 INR 1.2 04/08/17 13:46 APTT 27 SECONDS (21-34) 04/08/17 13:46 Attending/Attestation - Attestation I have personally seen and examined this patient.: Yes I have fully participated in the care of the patient.: Yes I have reviewed all pertinent clinical information, including history, physical exam and plan: Yes Notes (Text): 04/10/17 13:25 46 year old male with right sided acute diverticulitis. 1. Acute diverticulitis Plan: -microperforation suspected on CT -patient improving with antibiotics -surgery is following -advance diet as tolerated -recommend colonoscopy in 6-8 weeks -continue antibiotics
[2017-04-10 07:18] LABS: HEMATOCRIT 39.4 % (35.0-51.0); MEAN CELL VOLUME 85.8 fL (80.0-94.0); MEAN CORPUSCULAR HEMOGLOBIN 29.6 pg (27.0-31.0); MEAN CORPUSCULAR HGB CONC 34.5 g/dL (33.0-37.0); MEAN PLATELET VOLUME 9.9 fL (7.2-11.7); RED CELL DISTRIBUTION WIDTH 13.8 % (11.5-14.5); WHITE BLOOD COUNT 12.9 K/uL (4.8-10.8)
[2017-04-10 08:03] LABS: ALB/GLOB RATIO 1.2 (1.0-2.1); ALKALINE PHOSPHATASE 75 U/L (38-126); ALT/SGPT 43 U/L (21-72); AST/SGOT 19 U/L (17-59); BLOOD UREA NITROGEN 5 mg/dL (9-20); CALCIUM 8.2 mg/dl (8.6-10.4); CARBON DIOXIDE 29 mmol/L (22-30); CHLORIDE 103 mmol/L (98-107); GFR AFRICAN-AMERICAN > 60; GLUCOSE,RANDOM 114 mg/dL (75-110); POTASSIUM 3.7 mmol/L (3.6-5.2); SODIUM 138 mmol/L (132-148); TOTAL PROTEIN 6.2 g/dL (6.3-8.3)
--- NOTE | 2017-04-10 10:53 | CP.PCM.PN ---
<JacintoGisele - Last Filed: 04/10/17 10:54> Subjective - Date & Time of Evaluation Date of Evaluation: 04/10/17 Time of Evaluation: 09:45 - Subjective Subjective: General Surgery Dr. Salazar Pt S&E @bedside. NAEO. FRIEDMAN. Pt has no complaints. pain improved. Pt denies F/C , N/V, D/C. (+)Flatus. tolerating CLD. Objective - Vital Signs/Intake and Output Vital Signs (last 24 hours): Temp Pulse Resp BP Pulse Ox 98.6 F 57 L 18 93/57 L 96 04/10/17 08:00 04/10/17 08:00 04/10/17 08:00 04/10/17 08:00 04/10/17 08:00 Intake and Output: 04/10/17 04/10/17 06:59 18:59 Intake Total 1600 Output Total 600 Balance 1000 - Medications Medications: Current Medications Dextrose/Sodium Chloride (Dextrose 5%/0.45% Ns 1000 Ml) 1,000 mls @ 125 mls/hr IV .Q8H [facility] Last Admin: 04/10/17 02:04 Dose: Not Given Piperacillin Sod/Tazobactam Sod (Zosyn 4.5 Gm Iv Premix) 4.5 gm in 100 mls @ 200 mls/hr IVPB Q8H [facility] Last Admin: 04/10/17 02:24 Dose: 200 mls/hr Metronidazole (Flagyl) 500 mg in 100 mls @ 100 mls/hr IVPB Q8H [facility] Last Admin: 04/10/17 03:34 Dose: 100 mls/hr Morphine Sulfate (Morphine) 4 mg IVP Q4H PRN PRN Reason: Pain, moderate (4-7) Last Admin: 04/09/17 10:35 Dose: 4 mg Ondansetron HCl (Zofran Inj) 4 mg IVP Q4 PRN PRN Reason: Nausea/Vomiting - Labs Labs: 04/10/17 07:07 04/10/17 07:07 PT 13.3 SECONDS (9.7-12.2) H 04/08/17 13:46 INR 1.2 04/08/17 13:46 APTT 27 SECONDS (21-34) 04/08/17 13:46 - Constitutional Appears: Non-toxic, No Acute Distress - Head Exam Head Exam: NORMAL INSPECTION - Eye Exam Eye Exam: Normal appearance - ENT Exam ENT Exam: Mucous Membranes Moist - Respiratory Exam Respiratory Exam: NORMAL BREATHING PATTERN. absent: Accessory Muscle Use, Respiratory Distress - Cardiovascular Exam Cardiovascular Exam: absent: Bradycardia, Tachycardia - GI/Abdominal Exam GI & Abdominal Exam: Soft. absent: Distended, Firm, Guarding, Tenderness, Rebound - Extremities Exam Extremities Exam: Normal Inspection - Neurological Exam Neurological Exam: Alert, Awake, Oriented x3 - Psychiatric Exam Psychiatric exam: Normal Affect, Normal Mood - Skin Skin Exam: Dry, Intact, Normal Color, Warm Assessment and Plan - Assessment and Plan (Free Text) Assessment: 46 y/o M w/ improved right-sided diverticulitis - improving leukocytosis - cont IV abx - pain management - serial abd exams - advance to FLD - GI recommending outpatient colonoscopy in 6-8 weeks - encourage OOB to chair/Amb/IS use Pt discussed w/ Dr. Marie Casey DO PGY2 <Adarsh Salazar - Last Filed: 04/11/17 17:57> Objective - Vital Signs/Intake and Output Vital Signs (last 24 hours): Temp Pulse Resp BP Pulse Ox 98.7 F 55 L 20 96/60 L 96 04/11/17 16:00 04/11/17 16:00 04/11/17 16:00 04/11/17 16:00 04/11/17 16:00 Intake and Output: 04/11/17 04/11/17 06:59 18:59 Intake Total 500 1200 Output Total 400 Balance 100 1200 - Medications Medications: Current Medications Piperacillin Sod/Tazobactam Sod (Zosyn 4.5 Gm Iv Premix) 4.5 gm in 100 mls @ 200 mls/hr IVPB Q8H [facility] Last Admin: 04/11/17 12:00 Dose: 200 mls/hr Metronidazole (Flagyl) 500 mg in 100 mls @ 100 mls/hr IVPB Q8H [facility] Last Admin: 04/11/17 12:06 Dose: 100 mls/hr Ondansetron HCl (Zofran Inj) 4 mg IVP Q4 PRN PRN Reason: Nausea/Vomiting - Labs Labs: 04/11/17 08:08 04/11/17 08:08 PT 13.3 SECONDS (9.7-12.2) H 04/08/17 13:46 INR 1.2 04/08/17 13:46 APTT 27 SECONDS (21-34) 04/08/17 13:46 Attending/Attestation - Attestation I have personally seen and examined this patient.: Yes I have fully participated in the care of the patient.: Yes I have reviewed all pertinent clinical information, including history, physical exam and plan: Yes Notes (Text): Pt was seen and examined at bedside Agree with above note and assessment Pt is improving clinically Non tender WBC is normal No need for repeat CT scan C/w IV antibiotics full liquid diet Plan d.w pt in detail Risk and benefit explained in detail.
[2017-04-10 17:07] VITALS: RESP 20
--- NOTE | 2017-04-10 18:22 | CP.PCM.PN ---
Subjective - Date & Time of Evaluation Date of Evaluation: 04/10/17 Time of Evaluation: 06:00 - Subjective Subjective: LESS PAIN NO FEVER MIN TENDERNESS RLQ Objective - Vital Signs/Intake and Output Vital Signs (last 24 hours): Temp Pulse Resp BP Pulse Ox 97.5 F L 64 20 109/72 98 04/10/17 16:00 04/10/17 16:00 04/10/17 16:00 04/10/17 16:00 04/10/17 16:00 Intake and Output: 04/10/17 04/10/17 06:59 18:59 Intake Total 1600 1350 Output Total 600 Balance 1000 1350 - Medications Medications: Current Medications Dextrose/Sodium Chloride (Dextrose 5%/0.45% Ns 1000 Ml) 1,000 mls @ 125 mls/hr IV .Q8H [facility] Last Admin: 04/10/17 18:04 Dose: 125 mls/hr Piperacillin Sod/Tazobactam Sod (Zosyn 4.5 Gm Iv Premix) 4.5 gm in 100 mls @ 200 mls/hr IVPB Q8H [facility] Last Admin: 04/10/17 18:04 Dose: 200 mls/hr Metronidazole (Flagyl) 500 mg in 100 mls @ 100 mls/hr IVPB Q8H [facility] Last Admin: 04/10/17 12:50 Dose: 100 mls/hr Ondansetron HCl (Zofran Inj) 4 mg IVP Q4 PRN PRN Reason: Nausea/Vomiting - Labs Labs: 04/10/17 07:07 04/10/17 07:07 PT 13.3 SECONDS (9.7-12.2) H 04/08/17 13:46 INR 1.2 04/08/17 13:46 APTT 27 SECONDS (21-34) 04/08/17 13:46 - Constitutional Appears: Non-toxic, Chronically Ill - Head Exam Head Exam: NORMOCEPHALIC - Eye Exam Eye Exam: PERRL - ENT Exam ENT Exam: Mucous Membranes Dry - Neck Exam Neck Exam: absent: Lymphadenopathy - Respiratory Exam Respiratory Exam: Decreased Breath Sounds, Clear to Ausculation Bilateral - Cardiovascular Exam Cardiovascular Exam: REGULAR RHYTHM - GI/Abdominal Exam GI & Abdominal Exam: Distended, Soft - Rectal Exam Rectal Exam: Deferred - Exam Exam: NORMAL INSPECTION Assessment and Plan - Assessment and Plan (Free Text) Plan: CONT IV THEN PO RX FOR 14-21 DAYS GI FOLLOW UP
[2017-04-11] MEDS: Piperacill/Tazo 4.5gm in Dex 4.5 GM/100 ML BAG IVPB SCH ×2 (02:38→12:00)
[2017-04-11] MEDS: Dextrose 5%/0.45% NS 1,000 ML IV SCH (02:39)
[2017-04-11] MEDS: metroNIDAZOLE IV 500 mg/100 ml 500 MG/100 ML BAG IVPB SCH ×2 (03:35→12:06)
[2017-04-11 08:25] LABS: MEAN CELL VOLUME 85.7 fL (80.0-94.0); MEAN CORPUSCULAR HEMOGLOBIN 28.9 pg (27.0-31.0); MEAN CORPUSCULAR HGB CONC 33.7 g/dL (33.0-37.0); MEAN PLATELET VOLUME 10.3 fL (7.2-11.7); RED CELL DISTRIBUTION WIDTH 13.7 % (11.5-14.5); WHITE BLOOD COUNT 7.7 K/uL (4.8-10.8)
[2017-04-11 08:33] LABS: ALB/GLOB RATIO 1.2 (1.0-2.1); ALKALINE PHOSPHATASE 75 U/L (38-126); ALT/SGPT 49 U/L (21-72); AST/SGOT 19 U/L (17-59); BILIRUBIN,TOTAL 0.9 mg/dL (0.2-1.3); BLOOD UREA NITROGEN 5 mg/dL (9-20); CALCIUM 8.1 mg/dl (8.6-10.4); CARBON DIOXIDE 29 mmol/L (22-30); CHLORIDE 102 mmol/L (98-107); GFR AFRICAN-AMERICAN > 60; GLUCOSE,RANDOM 101 mg/dL (75-110); POTASSIUM 3.7 mmol/L (3.6-5.2); SODIUM 139 mmol/L (132-148); TOTAL PROTEIN 6.8 g/dL (6.3-8.3)
--- NOTE | 2017-04-11 08:49 | CP.PCM.PN ---
<Gisele Casey - Last Filed: 04/11/17 09:42> Subjective - Date & Time of Evaluation Date of Evaluation: 04/11/17 Time of Evaluation: 07:00 - Subjective Subjective: General Surgery Dr. Salazar Pt S&E @bedside. NAEO. Pain significantly improved. denies F/C, N/V, D/C. Pt tolerating diet. Objective - Vital Signs/Intake and Output Vital Signs (last 24 hours): Temp Pulse Resp BP Pulse Ox 98.1 F 60 20 107/70 97 04/11/17 08:31 04/11/17 08:31 04/11/17 08:31 04/11/17 08:31 04/11/17 08:31 Intake and Output: 04/11/17 04/11/17 06:59 18:59 Intake Total 500 Output Total 400 Balance 100 - Medications Medications: Current Medications Piperacillin Sod/Tazobactam Sod (Zosyn 4.5 Gm Iv Premix) 4.5 gm in 100 mls @ 200 mls/hr IVPB Q8H ERI Last Admin: 04/11/17 02:38 Dose: 200 mls/hr Metronidazole (Flagyl) 500 mg in 100 mls @ 100 mls/hr IVPB Q8H ERI Last Admin: 04/11/17 03:35 Dose: 100 mls/hr Ondansetron HCl (Zofran Inj) 4 mg IVP Q4 PRN PRN Reason: Nausea/Vomiting - Labs Labs: 04/11/17 08:08 04/11/17 08:08 PT 13.3 SECONDS (9.7-12.2) H 04/08/17 13:46 INR 1.2 04/08/17 13:46 APTT 27 SECONDS (21-34) 04/08/17 13:46 - Constitutional Appears: Non-toxic, No Acute Distress - Head Exam Head Exam: NORMAL INSPECTION - Eye Exam Eye Exam: Normal appearance - ENT Exam ENT Exam: Mucous Membranes Moist - Respiratory Exam Respiratory Exam: Accessory Muscle Use, NORMAL BREATHING PATTERN. absent: Respiratory Distress - Cardiovascular Exam Cardiovascular Exam: Bradycardia, Tachycardia - GI/Abdominal Exam GI & Abdominal Exam: Firm, Soft, Tenderness (minimal TTP RLQ), Rebound. absent : Distended, Guarding - Extremities Exam Extremities Exam: Normal Inspection - Neurological Exam Neurological Exam: Alert, Awake, Oriented x3 - Psychiatric Exam Psychiatric exam: Normal Affect, Normal Mood - Skin Skin Exam: Dry, Intact, Normal Color, Warm Assessment and Plan - Assessment and Plan (Free Text) Assessment: 46 y/o M w/ R-sided diverticulitis w/ microperf - resolved leukocytosis - cont IV abx - cont pain management - monitor vitals - cont FLD - monitor bowel fxn - encourage OOB to chair/Amb Pt discussed w/ Dr. Marie Casey <Adarsh Salazar - Last Filed: 04/11/17 18:02> Objective - Vital Signs/Intake and Output Vital Signs (last 24 hours): Temp Pulse Resp BP Pulse Ox 98.7 F 55 L 20 96/60 L 96 04/11/17 16:00 04/11/17 16:00 04/11/17 16:00 04/11/17 16:00 04/11/17 16:00 Intake and Output: 04/11/17 04/11/17 06:59 18:59 Intake Total 500 1200 Output Total 400 Balance 100 1200 - Medications Medications: Current Medications Piperacillin Sod/Tazobactam Sod (Zosyn 4.5 Gm Iv Premix) 4.5 gm in 100 mls @ 200 mls/hr IVPB Q8H [facility] Last Admin: 04/11/17 12:00 Dose: 200 mls/hr Metronidazole (Flagyl) 500 mg in 100 mls @ 100 mls/hr IVPB Q8H [facility] Last Admin: 04/11/17 12:06 Dose: 100 mls/hr Ondansetron HCl (Zofran Inj) 4 mg IVP Q4 PRN PRN Reason: Nausea/Vomiting - Labs Labs: 04/11/17 08:08 04/11/17 08:08 PT 13.3 SECONDS (9.7-12.2) H 04/08/17 13:46 INR 1.2 04/08/17 13:46 APTT 27 SECONDS (21-34) 04/08/17 13:46 Attending/Attestation - Attestation I have personally seen and examined this patient.: Yes I have fully participated in the care of the patient.: Yes I have reviewed all pertinent clinical information, including history, physical exam and plan: Yes Notes (Text): Pt was seen and examined at bedside Agree with above note and assessment Pt is doing well currently asymptomatic Advance to reg soft diet DC home with PO cipro/flagyl f.u as out pt Plan d.w pt in detail Risk and benefit explained in detail.
--- NOTE | 2017-04-11 09:43 | CP.PCM.PN ---
<Tawana Knight - Last Filed: 04/11/17 09:37> Subjective - Date & Time of Evaluation Date of Evaluation: 04/11/17 Time of Evaluation: 07:00 - Subjective Subjective: GI Fellow PGY4 Progress Note Pt seen and evaluated at bedside, pt doing well with no abdominal pain, tolerating diet with no associated nausea, vomiting, fevers or chills. Pt had a BM this am, no rectal bleeding, diarrhea or constipation. ROS: A 12pt ROS was negative except as above. Objective - Vital Signs/Intake and Output Vital Signs (last 24 hours): Temp Pulse Resp BP Pulse Ox 98.1 F 60 20 107/70 97 04/11/17 08:31 04/11/17 08:31 04/11/17 08:31 04/11/17 08:31 04/11/17 08:31 Intake and Output: 04/11/17 04/11/17 06:59 18:59 Intake Total 500 Output Total 400 Balance 100 - Medications Medications: Current Medications Piperacillin Sod/Tazobactam Sod (Zosyn 4.5 Gm Iv Premix) 4.5 gm in 100 mls @ 200 mls/hr IVPB Q8H [facility] Last Admin: 04/11/17 02:38 Dose: 200 mls/hr Metronidazole (Flagyl) 500 mg in 100 mls @ 100 mls/hr IVPB Q8H [facility] Last Admin: 04/11/17 03:35 Dose: 100 mls/hr Ondansetron HCl (Zofran Inj) 4 mg IVP Q4 PRN PRN Reason: Nausea/Vomiting - Labs Labs: 04/11/17 08:08 04/11/17 08:08 PT 13.3 SECONDS (9.7-12.2) H 04/08/17 13:46 INR 1.2 04/08/17 13:46 APTT 27 SECONDS (21-34) 04/08/17 13:46 - Constitutional Appears: Non-toxic, No Acute Distress - Head Exam Head Exam: ATRAUMATIC, NORMAL INSPECTION, NORMOCEPHALIC - Eye Exam Eye Exam: EOMI, Normal appearance, PERRL Pupil Exam: PERRL - ENT Exam ENT Exam: Mucous Membranes Moist, Normal Exam - Neck Exam Neck Exam: Full ROM - Respiratory Exam Respiratory Exam: Clear to Ausculation Bilateral, NORMAL BREATHING PATTERN - Cardiovascular Exam Cardiovascular Exam: REGULAR RHYTHM, RRR - GI/Abdominal Exam GI & Abdominal Exam: Soft, Normal Bowel Sounds. absent: Distended, Guarding, Tenderness, Organomegaly - Rectal Exam Rectal Exam: Deferred - Extremities Exam Extremities Exam: Full ROM, Normal Inspection - Back Exam Back Exam: NORMAL INSPECTION - Neurological Exam Neurological Exam: Alert, Awake, Oriented x3 - Psychiatric Exam Psychiatric exam: Normal Affect, Normal Mood - Skin Skin Exam: Dry, Intact, Normal Color, Warm Assessment and Plan - Assessment and Plan (Free Text) Assessment: 46 year old male with right sided acute diverticulitis. 1. Acute diverticulitis Plan: -Continue supportive care with pain control and anti-emetics -Patient clinically improving, pain improved, tolerating liquid diet -Advance diet as tolerated -Continue antibiotics, can change to po prior to discharge home -Recommend colonoscopy in 8 weeks -Please call with any questions or concerns <Minor Vance - Last Filed: 04/11/17 17:43> Objective - Vital Signs/Intake and Output Vital Signs (last 24 hours): Temp Pulse Resp BP Pulse Ox 98.7 F 55 L 20 96/60 L 96 04/11/17 16:00 04/11/17 16:00 04/11/17 16:00 04/11/17 16:00 04/11/17 16:00 Intake and Output: 04/11/17 04/11/17 06:59 18:59 Intake Total 500 Output Total 400 Balance 100 - Medications Medications: Current Medications Piperacillin Sod/Tazobactam Sod (Zosyn 4.5 Gm Iv Premix) 4.5 gm in 100 mls @ 200 mls/hr IVPB Q8H [facility] Last Admin: 04/11/17 12:00 Dose: 200 mls/hr Metronidazole (Flagyl) 500 mg in 100 mls @ 100 mls/hr IVPB Q8H [facility] Last Admin: 04/11/17 12:06 Dose: 100 mls/hr Ondansetron HCl (Zofran Inj) 4 mg IVP Q4 PRN PRN Reason: Nausea/Vomiting - Labs Labs: 04/11/17 08:08 04/11/17 08:08 PT 13.3 SECONDS (9.7-12.2) H 04/08/17 13:46 INR 1.2 04/08/17 13:46 APTT 27 SECONDS (21-34) 04/08/17 13:46 Attending/Attestation - Attestation I have personally seen and examined this patient.: Yes I have fully participated in the care of the patient.: Yes I have reviewed all pertinent clinical information, including history, physical exam and plan: Yes Notes (Text): 04/11/17 17:41 I have seen and examined patient with GI fellow. No acute events overnight, he is seen sitting at bedside eating breakfast, appears quite comfortable. He continues to endorse mild RUQ abdominal discomfort though much improved compared to prior day. He denies nausea, vomiting, fever/chills, tolerating PO liquids without difficulty. Review of vitals from today are normal. Abdominal pain Acute diverticulitis with mild foci of adjacent cecal free air, microperforation - Advance diet as tolerated - Continue with antibiotic therapy - Follow up surgical recommendations - Patient should have elective outpatient colonoscopy within 6-8 weeks following resolution of symptoms. No further planned GI intervention, will sign off case. Please reconsult as necessary, thank you.
[2017-04-11 16:57] VITALS: BP 96/60; PULSE 55; TEMP 98.7; O2SAT 96
--- NOTE | 2017-04-11 18:35 | CP.PCM.PN ---
Subjective - Date & Time of Evaluation Date of Evaluation: 04/11/17 Time of Evaluation: 08:00 - Subjective Subjective: pt doing well with no abdominal pain, tolerating diet with no associated nausea , vomiting, fevers or chills. Pt had a BM this am, no rectal bleeding, diarrhea or constipation. Objective - Vital Signs/Intake and Output Vital Signs (last 24 hours): Temp Pulse Resp BP Pulse Ox 98.7 F 55 L 20 96/60 L 96 04/11/17 16:00 04/11/17 16:00 04/11/17 16:00 04/11/17 16:00 04/11/17 16:00 Intake and Output: 04/11/17 04/11/17 06:59 18:59 Intake Total 500 1200 Output Total 400 Balance 100 1200 - Medications Medications: Current Medications Piperacillin Sod/Tazobactam Sod (Zosyn 4.5 Gm Iv Premix) 4.5 gm in 100 mls @ 200 mls/hr IVPB Q8H ERI Last Admin: 04/11/17 12:00 Dose: 200 mls/hr Metronidazole (Flagyl) 500 mg in 100 mls @ 100 mls/hr IVPB Q8H ERI Last Admin: 04/11/17 12:06 Dose: 100 mls/hr Ondansetron HCl (Zofran Inj) 4 mg IVP Q4 PRN PRN Reason: Nausea/Vomiting - Labs Labs: 04/11/17 08:08 04/11/17 08:08 PT 13.3 SECONDS (9.7-12.2) H 04/08/17 13:46 INR 1.2 04/08/17 13:46 APTT 27 SECONDS (21-34) 04/08/17 13:46 - Constitutional Appears: Non-toxic, Chronically Ill - Head Exam Head Exam: NORMOCEPHALIC - Eye Exam Eye Exam: PERRL - ENT Exam ENT Exam: Mucous Membranes Dry - Neck Exam Neck Exam: absent: Lymphadenopathy - Respiratory Exam Respiratory Exam: Decreased Breath Sounds - Cardiovascular Exam Cardiovascular Exam: REGULAR RHYTHM - GI/Abdominal Exam GI & Abdominal Exam: Distended, Soft - Rectal Exam Rectal Exam: Deferred - Exam Exam: NORMAL INSPECTION Assessment and Plan (1) Diverticulitis of colon with perforation Status: Acute - Assessment and Plan (Free Text) Assessment: cont rx po fup with GI
--- NOTE | 2017-04-11 19:27 | CP.PCM.DIS ---
Provider - Provider Date of Admission: 04/08/17 17:02 Attending physician: Adarsh Salazar MD Time Spent in preparation of Discharge (in minutes): 25 Hospital Course - Lab Results Lab Results: Micro Results 04/08/17 18:30 Blood Blood Culture - Preliminary NO GROWTH AFTER 48 HOURS 04/08/17 19:00 Blood Blood Culture - Preliminary NO GROWTH AFTER 48 HOURS Most Recent Lab Values WBC 7.7 K/uL (4.8-10.8) 04/11/17 08:08 RBC 4.90 Mil/uL (4.40-5.90) 04/11/17 08:08 Hgb 14.2 g/dL (12.0-18.0) 04/11/17 08:08 Hct 42.0 % (35.0-51.0) 04/11/17 08:08 MCV 85.7 fL (80.0-94.0) 04/11/17 08:08 MCH 28.9 pg (27.0-31.0) 04/11/17 08:08 MCHC 33.7 g/dL (33.0-37.0) 04/11/17 08:08 RDW 13.7 % (11.5-14.5) 04/11/17 08:08 Plt Count 230 K/uL (130-400) 04/11/17 08:08 MPV 10.3 fL (7.2-11.7) 04/11/17 08:08 Neut % (Auto) 77.3 % (50.0-75.0) H 04/09/17 11:31 Lymph % (Auto) 14.3 % (20.0-40.0) L 04/09/17 11:31 [place] % (Auto) 7.4 % (0.0-10.0) 04/09/17 11:31 Eos % (Auto) 0.8 % (0.0-4.0) 04/09/17 11:31 Baso % (Auto) 0.2 % (0.0-2.0) 04/09/17 11:31 Neut # 10.9 K/uL (1.8-7.0) H 04/09/17 11:31 Lymph # 2.0 K/uL (1.0-4.3) 04/09/17 11:31 [place] # 1.1 K/uL (0.0-0.8) H 04/09/17 11:31 Eos # 0.1 K/uL (0.0-0.7) 04/09/17 11:31 Baso # 0.0 K/uL (0.0-0.2) 04/09/17 11:31 PT 13.3 SECONDS (9.7-12.2) H 04/08/17 13:46 INR 1.2 04/08/17 13:46 APTT 27 SECONDS (21-34) 04/08/17 13:46 Sodium 139 mmol/L (132-148) 04/11/17 08:08 Potassium 3.7 mmol/L (3.6-5.2) 04/11/17 08:08 Chloride 102 mmol/L (98-107) 04/11/17 08:08 Carbon Dioxide 29 mmol/L (22-30) 04/11/17 08:08 Anion Gap 11 (10-20) 04/11/17 08:08 BUN 5 mg/dL (9-20) L 04/11/17 08:08 Creatinine 1.0 mg/dL (0.8-1.5) 04/11/17 08:08 Est GFR ( Amer) > 60 04/11/17 08:08 Est GFR (Non-Af Amer) > 60 04/11/17 08:08 Random Glucose 101 mg/dL (75-110) 04/11/17 08:08 Calcium 8.1 mg/dl (8.6-10.4) L 04/11/17 08:08 Total Bilirubin 0.9 mg/dL (0.2-1.3) 04/11/17 08:08 AST 19 U/L (17-59) 04/11/17 08:08 ALT 49 U/L (21-72) 04/11/17 08:08 Alkaline Phosphatase 75 U/L (38-126) 04/11/17 08:08 Total Protein 6.8 g/dL (6.3-8.3) 04/11/17 08:08 Albumin 3.7 g/dL (3.5-5.0) 04/11/17 08:08 Globulin 3.1 gm/dL (2.2-3.9) 04/11/17 08:08 Albumin/Globulin Ratio 1.2 (1.0-2.1) 04/11/17 08:08 Lipase 55 U/L (23-300) 04/08/17 13:46 Urine Color Yellow (YELLOW) 04/08/17 13:46 Urine Clarity Clear (Clear) 04/08/17 13:46 Urine pH 5.0 (5.0-8.0) 04/08/17 13:46 Ur Specific [place] 1.012 (1.003-1.030) 04/08/17 13:46 Urine Protein Negative mg/dL (NEGATIVE) 04/08/17 13:46 Urine Glucose (UA) Normal mg/dL (Normal) 04/08/17 13:46 Urine Ketones Negative mg/dL (NEGATIVE) 04/08/17 13:46 Urine Blood 1+ (NEGATIVE) H 04/08/17 13:46 Urine Nitrate Negative (NEGATIVE) 04/08/17 13:46 Urine Bilirubin Negative (NEGATIVE) 04/08/17 13:46 Urine Urobilinogen Normal mg/dL (0.2-1.0) 04/08/17 13:46 Ur Leukocyte Esterase Neg [place]/uL (Negative) 04/08/17 13:46 Urine WBC (Auto) 3 /hpf (0-5) 04/08/17 13:46 Urine RBC (Auto) 2 /hpf (0-3) 04/08/17 13:46 Stool Occult Blood Negative (NEGATIVE) 04/08/17 18:15 Discharge Exam - Head Exam Head Exam: NORMOCEPHALIC Discharge Plan - Discharge Medications Prescriptions: Ciprofloxacin [Cipro] 500 mg PO BID #14 tab Metronidazole [Flagyl] 500 mg PO BID #14 tablet - Follow Up Plan Condition: STABLE Disposition: HOME/ ROUTINE Instructions: Ciprofloxacin (By mouth), Diverticulitis (DC), Low Fiber Diet ( GEN), Diverticulitis Diet (DC) Referrals: Adarsh Salazar MD [Staff Provider] -
== END 2017-04-11 19:45 | disposition home or self-care (01) | DRG 392 ==
LOC: C.ER 11:06 → C.9E 17:02 → C.3T 18:39
PROVIDERS: ADMIT Surgery Surgical Critical Care; ATTEND Surgery Surgical Critical Care
DX: K57.20 Diverticulitis of large intestine with perforation and abscess without bleeding (principal); Z98.818 Other dental procedure status